=== PATIENT | female | born 1960 | race Caucasian/White ===

== ENCOUNTER → 2016-12-04 | Outpatient (CLI) | payer BC ==
[~2016-12-04] MED LIST: [UNRECOGNIZED DRUG - REMARK]
== END ==
LOC: MC.RAD 08:20
DX: Z12.31 Encounter for screening mammogram for malignant neoplasm of breast (principal)

== ENCOUNTER → 2017-12-15 | Outpatient (CLI) | payer BC | LOC: MC.RAD 11:13 | DX: Z12.31 Encounter for screening mammogram for malignant neoplasm of breast (principal) ==

== ENCOUNTER → 2018-12-29 | Outpatient (CLI) | payer BC | LOC: MC.RAD 11:26 | DX: Z12.31 Encounter for screening mammogram for malignant neoplasm of breast (principal) ==

== ENCOUNTER → 2020-01-02 | Outpatient (CLI) | payer BC | LOC: MC.RAD 14:23 | DX: Z12.31 Encounter for screening mammogram for malignant neoplasm of breast (principal); N63.11 Unspecified lump in the right breast, upper outer quadrant ==

== ENCOUNTER → 2020-01-05 | Outpatient (CLI) | payer BC | LOC: MC.RAD 13:51 | DX: N63.10 Unspecified lump in the right breast, unspecified quadrant (principal) ==

== ENCOUNTER → 2020-01-10 | Outpatient (CLI) | payer BC | LOC: MC.RAD 11:02 | DX: D05.81 Other specified type of carcinoma in situ of right breast (principal) ==

== ENCOUNTER 2020-01-19 06:48 | Day surgery (SDC) | payer BC ==
[2020-01-19] VITALS (8 sets, daily range): BP systolic 127–168; BP diastolic 69–94; PULSE 73–87; TEMP 98.5–99
[~2020-01-19] VITALS: Ht 162.6 cm; Wt 60.0 kg
--- NOTE | 2020-01-19 08:43 | NUR ---
Patient returns to radiology per wheelchair accompanied by
[2020-01-19] MEDS ORDERED: LOPRESSOR 225 MG/TAB PO (08:55)
[2020-01-19] MEDS ORDERED: ATIVAN 0.50.5 MG/TAB PO (08:55)
[2020-01-19] MEDS ORDERED: D3-5050000 IU PO (08:56)
--- NOTE | 2020-01-19 09:52 | NUR ---
Patient returns to room 6 per wheelchair from radiology. IV fluids reconnected. Spouse in the room.
--- NOTE | 2020-01-19 10:00 | NUR ---
Taken to PACU per cart for block placement prior to surgery.
[2020-01-19] MEDS ORDERED: OMEGA-3 1000 MG1 CAP PO (10:10)
[2020-01-19] MEDS ORDERED: BIOTIN5000 MCG PO (10:11)
[2020-01-19] MEDS ORDERED: TAMBOCOR 1100 MG/TAB PO (10:12)
[2020-01-19] MEDS ORDERED: NORCO 325 MG-51 TAB PO (12:04)
--- NOTE | 2020-01-19 12:40 | NUR ---
Patient returns to room 6 per cart accompanied by Luna GARCIA and is awake and alert. IV fluids infusing and site is free of redness. Temp 97.9 and room air sats 96%. Dressing clean and dry on the right breast. Siderails up x2 and call light in reach. Spouse in room.
--- NOTE | 2020-01-19 12:55 | NUR ---
Resting with eyes closed. Offers no complaints of pain.
--- NOTE | 2020-01-19 13:10 | NUR ---
Continues to rest with eyes closed when not disturbed.
--- NOTE | 2020-01-19 13:25 | NUR ---
Awake and sipping on water, Pepsi, and eating toast. Continues to deny pain or nausea.
--- NOTE | 2020-01-19 13:40 | NUR ---
Tolerated toast and fluids. Continues to deny pain or nausea.
--- NOTE | 2020-01-19 14:00 | NUR ---
Continues to deny pain or nausea. Dressing remains clean and dry on the right breast.
--- NOTE | 2020-01-19 14:08 | NUR ---
IV discontinued and patient is able to dress self.
--- NOTE | 2020-01-19 14:15 | NUR ---
Given dismissal instructions and voices understanding of these. Provided office number for questions or concerns. Given script for [place]. Dismissed to home driven by spouse and taken to the front door per wheelchair and assisted into vehicle.
== END 2020-01-19 14:15 | disposition home or self-care (01) ==
LOC: SDCO 06:48
DX: C50.411 Malignant neoplasm of upper-outer quadrant of right female breast (principal); I49.3 Ventricular premature depolarization; Z17.0 Estrogen receptor positive status [ER+]; Z88.0 Allergy status to penicillin; Z88.2 Allergy status to sulfonamides; Z79.899 Other long term (current) drug therapy
CPT/HCPCS: A9541; J0690; J1100; J1885; J2250; J2405; J2704; J3010; J7120

== ENCOUNTER → 2020-03-20 | Outpatient (REF) | payer BC ==
[~2020-03-20] MED LIST changes: +ATIVAN 0.50.5 MG/TAB PO; +BIOTIN5000 MCG PO; +D3-5050000 IU PO; +LOPRESSOR 225 MG/TAB PO; +NORCO 325 MG-51 TAB PO; +OMEGA-3 1000 MG1 CAP PO; +TAMBOCOR 1100 MG/TAB PO
== END | disposition still patient (30) ==
LOC: COL.LAB 04:52
DX: Z20.828 Contact with and (suspected) exposure to other viral communicable diseases (principal)

== ENCOUNTER 2020-06-14 15:54 | Outpatient (CLI) | payer BC ==
[~2020-06-14] VITALS: Ht 162.6 cm; Wt 61.6 kg
[2020-06-14] MEDS ORDERED: ARIMIDEX1 MG PO (16:38)
[2020-06-14] MEDS ORDERED: ANTACID EXTRA750 M1 PO (16:39)
[2020-06-14 16:40] VITALS: BP 146/87; PULSE 76; TEMP 98.3
== END 2020-06-14 17:20 | disposition home or self-care (01) ==
LOC: EUO
DX: M81.0 Age-related osteoporosis without current pathological fracture (principal); M85.80 Other specified disorders of bone density and structure, unspecified site
CPT/HCPCS: J3489

== ENCOUNTER → 2021-01-15 | Outpatient (CLI) | payer BC ==
[~2021-01-15] MED LIST changes: +ANTACID EXTRA750 M1 PO; +ARIMIDEX1 MG PO
== END ==
LOC: MC.RAD 13:06
DX: Z12.31 Encounter for screening mammogram for malignant neoplasm of breast (principal); Z85.3 Personal history of malignant neoplasm of breast

== ENCOUNTER 2021-06-18 15:57 | Outpatient (CLI) | payer BC ==
[~2021-06-18] VITALS: Ht 162.6 cm; Wt 62.0 kg
[2021-06-18 16:20] VITALS: BP 141/91; PULSE 72; TEMP 98.5
== END 2021-06-18 16:50 ==
LOC: EUO 15:57
DX: M81.0 Age-related osteoporosis without current pathological fracture (principal)
CPT/HCPCS: J3489

== ENCOUNTER → 2022-02-17 | Outpatient (CLI) | payer BC | LOC: MC.RAD 08:04 | DX: Z12.31 Encounter for screening mammogram for malignant neoplasm of breast (principal) ==

== ENCOUNTER 2022-06-19 14:44 | Outpatient (CLI) | payer BC ==
[~2022-06-19] VITALS: Ht 162.6 cm; Wt 59.9 kg
[2022-06-19 15:24] VITALS: BP 152/84; PULSE 85; TEMP 98.9
[2022-06-19] MEDS ORDERED: WOMEN'S DAILY1 TAB PO (15:32)
--- NOTE | 2022-06-19 16:07 | NUR ---
PT DISCHARGED AT APPROX 1600. PT'S VITAL SIGNS REMAINED WITHIN NORMAL LIMITS FOR THE DURATION OF HER INFUSION. PT WAS ABLE TO AMBULATE TO HER CAR WITHOUT ASSISTANCE. PT CONTINUED TO TOLERATE PO FLUIDS THROUGHOUT INFUSION.
== END 2022-06-19 16:00 | disposition home or self-care (01) ==
LOC: EUO 14:44
DX: M81.0 Age-related osteoporosis without current pathological fracture (principal)
CPT/HCPCS: J3489